=== PATIENT | male | born 1985 | race Caucasian/White ===

== ENCOUNTER 2016-08-16 19:43 | Emergency (ER) | payer BC ==
[2016-08-16 19:55] VITALS: TEMP 97.3
[2016-08-16] MEDS ORDERED: OXYCODONE/APAP 5/325 TAB PO ONE (21:10)
[2016-08-16] MEDS ORDERED: METHOCARBAMOL 750 MG TAB PO ONE (21:10)
--- NOTE | 2016-08-16 21:15 | EDPHY ---
H & P Stated Complaint: mid back pain, old injury but exacerbated yesterday Source: Patient Exam Limitations: No limitations - Personal History Current Tetanus/Diphtheria Vaccine: Unsure Current Tetanus Diphtheria and Acellular Pertussis (TDAP): Unsure - Medical/Surgical History Hx Asthma: No Hx Chronic Respiratory Disease: No Hx Diabetes: No Hx Cardiac Disease: No Hx Renal Disease: No Hx Cirrhosis: No Hx Alcoholism: No Hx HIV/AIDS: No Hx Splenectomy or Spleen Trauma: No Other PMH: T7 back injury, nasal reconstruction surgery, L knee healed abcess - Social History Smoking Status: Never smoked Time Seen by Provider: 08/16/16 20:03 HPI/ROS: CHIEF COMPLAINT: back pain HISTORY OF PRESENT ILLNESS: 30-year-old male presents emergency department with acute on chronic mid back pain. Patient worked out yesterday with a process trainer at the gym, does not recall any specific injury, woke up this morning with a tightness in his mid back that has worsened as the day has gone on. Patient states he has been taking ibuprofen with minimal relief. He states he has a known back problems diagnosed by MRI but is unsure what it is, he is you done physical therapy in the past which has been helpful. He denies saddle anesthesias, no loss of control of his bowel or bladder. No fevers, no abdominal pain, no nausea or vomiting. REVIEW OF SYSTEMS: A comprehensive 10 point review of systems is otherwise negative aside from elements mentioned in the history of present illness. (Christy Salinas) - Physical Exam Exam: Physical Exam Gen: Alert and Oriented, NAD HEENT: PERRL, moist mucous membranes NECK: no meningismus CV: regular rate and regular rhythm PULM: CTAB, no wheezes ABDOMEN: soft, non tender to palpation, BS present BACK: Midline and paraspinal lower T-spine and upper L-spine tenderness to palpation, no swelling or erythema NEURO: Neurologically grossly intact, 2/4 deep tendon reflexes patellar and Achilles, negative straight leg raise bilaterally, 5/5 strength EXTREMITIES: normal appearing SKIN: no rash or break in skin on exposed skin PSYCH: answers questions appropriately. (Christy Salinas) Constitutional: Initial Vital Signs Temperature (C) 36.3 C 08/16/16 19:52 Heart Rate 105 H 08/16/16 19:52 Respiratory Rate 14 08/16/16 19:52 Blood Pressure 160/73 H 08/16/16 19:52 O2 Sat (%) 98 08/16/16 19:52 O2 Delivery Mode Room Air Allergies/Adverse Reactions: No Known Allergies Allergy (Unverified 08/16/16 19:52) Home Medications: Medication Instructions Recorded Methocarbamol [Robaxin-750] 750 - 1,500 mg PO QID PRN #20 08/16/16 tablet oxyCODONE/APAP 5/325 [Percocet 1 - 2 tab PO Q6H PRN #12 tab 08/16/16 5/325] Medical Decision Making ED Course/Re-evaluation: 30-year-old male presents with acute on chronic mid back pain with no signs of cauda equina syndrome or spinal abscess. Patient is given a Percocet and methocarbamol in the emergency department with a small prescription for both of these. He is given referral to Neurosurgery as he is new to [facility]. I have recommended physical therapy and core strengthening exercises. He is given return precautions for any neurovascular compromise. (Christy Salinas) I did not see this patient while he was in the emergency department. However his care was discussed with the nurse practitioner while the patient was in the department. I agree with treatment plan and management (Aleksandar Kurtz) Differential Diagnosis: The differential diagnosis for the patient's back pain included but was not limited to musculo-skeletal pain, epidural abscess, herniated disk, spinal fracture, cauda equina and intra-abdominal causes including urinary system. ( Christy Salinas) Departure - Departure Disposition: Home, Routine, Self-Care Clinical Impression: Acute exacerbation of chronic low back pain Condition: Good Instructions: Back Pain (ED), Lower Back Exercises (ED), Oxycodone/ Acetaminophen (By mouth) Additional Instructions: Take 600 mg of ibuprofen 3 times per day with food, takes methocarbamol every 8 hours as needed for muscle spasms. Take Percocet for severe pain Ice or heat whichever feels better, gentle range of motion exercises, core strengthening exercises daily. Return to the emergency department for any loss of control of your bowel or bladder, numbness to your groin, fevers. Referrals: Jose Osman MD [Medical Doctor] - As per Instructions (Neurosurgeon on-call) Prescriptions: oxyCODONE/APAP 5/325 [Percocet 5/325] 1 - 2 tab PO Q6H PRN #12 tab PRN Reason: Pain, Severe Methocarbamol [Robaxin-750] 750 - 1,500 mg PO QID PRN #20 tablet PRN Reason: Spasms
[2016-08-16] MEDS ORDERED: OXYCODONE/APAP 5/325MG PREPACK#4 BTL TAKEHOME ONE (21:18)
[2016-08-16 21:45] VITALS: BP 141/76; PULSE 60; RESP 16; O2SAT 95
== END 2016-08-16 21:44 | disposition home or self-care (01) ==
DX: M54.5 Low back pain (principal); G89.29 Other chronic pain

== ENCOUNTER 2016-09-23 06:24 | Emergency (ER) | payer BC ==
[2016-09-23 06:30] VITALS: O2SAT 96
[2016-09-23] MEDS ORDERED: OXYCODONE/APAP 5/325 TAB PO ONE (07:42)
[2016-09-23] MEDS ORDERED: ONDANSETRON DISINTEGRATING 4 MG TAB PO ONE (07:42)
--- NOTE | 2016-09-23 07:45 | EDPHY ---
H & P Smoking Status: Never smoked Time Seen by Provider: 09/23/16 07:35 HPI/ROS: Chief complaint. Nose injury HPI. 30-year-old male presents emergency department with nose injury. He was at home and had fallen asleep on the couch in at about 3:00 a.m. was going into his bedroom. He tripped over clothes that were on the floor fell striking his nose. Sustained laceration and nose bleed. No other injuries. He has a history of previous nose fracture and reconstruction in 2009. Denies neck chest back arm leg abdominal pain ROS Constitutional. no fever/chills, no weakness Eyes. no problems with vision ENT. Nose pain with cut and nosebleed Cardiovascular. no chest pain Respiratory. no shortness of breath, no cough Abdominal. no abdominal pain, no nausea/vomiting, no diarrhea . no problems urinating MS. no calf pain/swelling, no neck/back pain, no joint pain Skin. no rash Lymph. no swollen glands Neuro. no headache, no dizziness, no difficulty walking or with speech (Aleksandar Kurtz S) Past Medical/Surgical History: Previous nasal fracture and reconstruction, T7 back injury (Aleksandar Kurtz S) Social History: Single, nonsmoker, no alcohol (Aleksandar Kurtz S) Physical Exam: General Appearance: Alert well-developed male mild distress vital signs are stable Eyes: Pupils equal and round no pallor or injection. ENT, no hemotympanum or Jordan sign. The nose is diffusely swollen. There appears to be superficial laceration to the right upper nose. There is no septal hematoma. There is no active bleeding from the nose at this point in time. No oral pharyngeal or dental trauma Respiratory: There are no retractions, lungs are clear to auscultation. Cardiovascular: Regular rate and rhythm. Gastrointestinal: Abdomen is soft and nontender, no masses, bowel sounds normal. Neurological: Awake and alert, sensory and motor exams grossly normal. Skin: Warm and dry, no rashes. Musculoskeletal: Neck is supple nontender. Extremities symmetrical, full range of motion. Psychiatric: Patient is oriented X 3, there is no agitation. (Aleksandar Kurtz S) Constitutional: Initial Vital Signs Temperature (C) 36.3 C 09/23/16 06:27 Heart Rate 50 L 09/23/16 06:27 Respiratory Rate 18 09/23/16 06:27 Blood Pressure 144/51 H 09/23/16 06:27 O2 Sat (%) 96 09/23/16 06:27 O2 Delivery Mode Room Air Allergies/Adverse Reactions: No Known Allergies Allergy (Unverified 09/23/16 06:27) Home Medications: Medication Instructions Recorded oxyCODONE HCL/ACETAMINOPHEN 1 each PO Q4-6PRN PRN #15 tablet 09/23/16 [Percocet 5-325 mg Tablet] Medical Decision Making Procedures: Percocet and Zofran by mouth (Aleksandar Kurtz) ED Course/Re-evaluation: I have evaluated this patient at 8:30 a.m.. He reports a mechanical fall with nasal trauma. No loss of conscious. No significant headache. No nausea or vomiting. No changes in vision. There was epistaxis that resolved. Upon examination he does have a contusion to the bridge of the nose. There is mild displacement of the nose laterally. No septal hematoma. No laceration that requires repair. X-ray does reveal a nondisplaced nasal fracture. His airway is patent. He is in no acute distress. There is no bleeding in the posterior pharynx. He will be discharged home with pain medication, follow-up information for her nose and throat to receive definitive care. He is comfortable this plan and will be discharged home in stable condition. Tetanus will be updated prior to discharge home. Return to the emergency department precautions. He is to refrain from blowing his nose, elevated the head of bed, and ice the nose 20 minutes on and 20 minutes off. (Vikas Urban) The emergency department was busy so I asked LAMONT Urban to follow up on patient's x-ray and make disposition. (Aleksandar Kurtz) Differential Diagnosis: I considered nasal fracture, septal hematoma, laceration requiring sutures. ( Aleksandar Kurtz) - Data Points Medications Given: Discontinued Medications Diphtheria/Tetanus/Acell Pertussis (Boostrix) 0.5 ml IM .ONCE ONE Stop: 09/23/16 08:42 Last Admin: 09/23/16 09:07 Dose: 0.5 ml Ondansetron HCl (Zofran Odt) 4 mg PO EDNOW ONE Stop: 09/23/16 07:43 Last Admin: 09/23/16 08:20 Dose: 4 mg Oxycodone/Acetaminophen (Percocet 5/325) 1 tab PO EDNOW ONE Stop: 09/23/16 07:43 Last Admin: 09/23/16 08:20 Dose: 1 tab Departure - Departure Disposition: Home, Routine, Self-Care Clinical Impression: Nasal fracture Qualifiers: Encounter type: initial encounter Fracture type: closed Qualified Code(s): S02.2XXA - Fracture of nasal bones, initial encounter for closed fracture Condition: Good Instructions: Nasal Fracture (ED) Additional Instructions: Elevated head of bed greater than 30, refrain from blowing her nose ice 20 minutes on and 20 minutes off. return to ER for worsening pain, difficulty breathing, epistaxis Referrals: NONE *PRIMARY CARE P,. [Primary Care Provider] - As per Instructions Tommy Alcocer MD [Medical Doctor] - As per Instructions Prescriptions: oxyCODONE HCL/ACETAMINOPHEN [Percocet 5-325 mg Tablet] 1 each PO Q4-6PRN PRN # 15 tablet PRN Reason: Pain, Breakthrough
[2016-09-23] MEDS ORDERED: TDAP ADULT 0.5 ML INJ (BOOSTRIX) IM ONE (08:41)
[2016-09-23 09:08] VITALS: BP 116/44; PULSE 51; RESP 14; TEMP 98.2
== END 2016-09-23 09:08 | disposition home or self-care (01) ==
DX: S02.2XXA Fracture of nasal bones, initial encounter for closed fracture (principal); Z23 Encounter for immunization; W01.10XA Fall on same level from slipping, tripping and stumbling with subsequent striking against unspecified object, initial encounter; Y92.009 Unspecified place in unspecified non-institutional (private) residence as the place of occurrence of the external cause

== ENCOUNTER 2017-05-22 22:23 | Emergency (ER) | payer BC ==
[2017-05-22 22:29] VITALS: PULSE 46; RESP 16; TEMP 97.5; O2SAT 97
--- NOTE | 2017-05-22 22:39 | EDPHY ---
H & P Stated Complaint: R eye irritation HPI/ROS: HPI CHIEF COMPLAINT: Right eye irritation HISTORY OF PRESENT ILLNESS: This patient is a 31-year-old male otherwise healthy no significant medical history presents emergency room with right eye pain and irritation. Patient states that he was cutting tile ceramic tile around noon today. Around 1 to 2p.m. he noticed some eye pain and irritation. Got worse this evening. He thinks there may be a piece ceramic tile in his right eye. He denies any change in vision. Past Medical History: Denies significant medical history Past Surgical History: Denies significant surgical history Social History: Denies daily use of drugs alcohol tobacco. Family History: Noncontributory. ROS REVIEW OF SYSTEMS: A comprehensive 10 point review of systems is otherwise negative aside from elements mentioned in the history of present illness. Exam Constitutional appears well nontoxic triage nursing summary reviewed, vital signs reviewed, awake/alert. Eyes normal conjunctivae and sclera, EOMI, PERRLA. Left eye normal. Right eye: Extraocular movements intact. Conjunctiva normal. Anterior chamber normal without flare. No hyphema. No visualized foreign body. Lids everted no foreign body under the lid. Posterior eye exam without dilatation is normal for me. Visual acuity reviewed and normal. Fluorescein applied to the eye. HENT normal inspection, atraumatic, moist mucus membranes, no epistaxis, neck supple/ no meningismus, no raccoon eyes. Respiratory clear to auscultation bilaterally, normal breath sounds, no respiratory distress, no wheezing. Cardiovascular rate normal, regular rhythm, no murmur, no edema, distal pulses normal. Gastrointestinal soft, non-tender, no rebound, no guarding, normal bowel sounds, no distension, no pulsatile mass. Genitourinary no CVA tenderness. Musculoskeletal no midline vertebral tenderness, full range of motion, no calf swelling, no tenderness of extremities, no meningismus, good pulses, neurovascularly intact. Skin pink, warm, & dry, no rash, skin atraumatic. Neurologic awake, alert and oriented x 3, AAOx3, moves all 4 extremities equally, motor intact, sensory intact, CN II-XII intact, normal cerebellar, normal vision, normal speech. Psychiatric normal mood/affect. Heme/Lymph/Immune no lymphadenopathy. Differential Diagnosis: Includes but is not limited to in a particular order eye foreign body, conjunctival abrasion, iritis, uveitis, corneal abrasion, corneal tear. Medical Decision Making: Plan for this patient full eye exam. Floor seen to see if there is uptake for corneal abrasion. Proparacaine for pain control. Close ophthalmology follow-up. Re-evaluation: 2254: There is no fluorescein uptake. I do not appreciate a corneal tear, abrasion or conjunctival tear or abrasion. Wood's lamp was used. Lids were everted I do not see a foreign body. Recommend erythromycin ointment. Cool compresses ibuprofen for pain close ophthalmology follow-up. He understands. He additionally understands do not rub his eye. His pain is completely gone after instilling of proparacaine. He understands follow-up with Ophthalmology chela call their 1st available appointment. He should be seen tomorrow. If he has any worsening symptoms questions concerns he should return emergency room. Source: Patient - Personal History Current Tetanus/Diphtheria Vaccine: Yes Current Tetanus Diphtheria and Acellular Pertussis (TDAP): Yes - Medical/Surgical History Hx Asthma: No Hx Chronic Respiratory Disease: No Hx Diabetes: No Hx Cardiac Disease: No Hx Renal Disease: No Hx Cirrhosis: No Hx Alcoholism: No Hx HIV/AIDS: No Hx Splenectomy or Spleen Trauma: No Other PMH: T7 back injury, nasal reconstruction surgery, L knee healed abcess - Social History Smoking Status: Never smoked Constitutional: Initial Vital Signs Temperature (C) 36.4 C 05/22/17 22:26 Heart Rate 46 L 05/22/17 22:26 Respiratory Rate 16 05/22/17 22:26 O2 Sat (%) 97 05/22/17 22:26 O2 Delivery Mode Room Air Allergies/Adverse Reactions: No Known Allergies Allergy (Unverified 05/22/17 22:25) Departure - Departure Disposition: Home, Routine, Self-Care Clinical Impression: Pain, eye, right Condition: Good Instructions: Eye Pain (ED) Additional Instructions: 1.Cool compresses. 2. Do not rub your eye. 3. Ibuprofen for mild pain. 4. Follow up with Ophthalmology tomorrow. 5. Antibiotics as prescribed. 6. Return to the emergency room if there is worsening symptoms questions or concerns. Referrals: NONE *PRIMARY CARE P,. [Primary Care Provider] - As per Instructions Jenny De Jesus MD [Medical Doctor] - As per Instructions
[2017-05-22] MEDS ORDERED: PROPARACAINE 0.5% 15 ML OPHT DROP OP ONE (22:42)
[2017-05-22] MEDS ORDERED: FLUORESCEIN SODIUM 1 MG STRIP OP ONE (22:42)
[2017-05-22] MEDS ORDERED: ERYTHROMYCIN 0.5% 1 GM OPHT.OINT EACHEYE ONE (22:57)
== END 2017-05-22 23:10 | disposition home or self-care (01) ==
DX: H57.11 Ocular pain, right eye (principal)